=== PATIENT | male | born 1975 | race Two or more races ===

== ENCOUNTER 2019-06-05 17:23 | Emergency (ER) | payer SELFPAY ==
[2019-06-05 17:26] VITALS: BP 149/78; PULSE 110; RESP 16; TEMP 36.9; O2SAT 100; BMI 28.1
--- NOTE | 2019-06-05 17:32 | W.ED.ANIMALB ---
HPI - Animal Bite General: Chief Complaint: Animal Bite Stated Complaint: spider bite Time Seen by Provider: 06/05/19 17:31 History of Present Illness: HPI narrative: Patient is a 44-year-old male who comes into the ED with infected wound. It started about 5 to 6 days ago. It is located on his right buttock. Patient was unaware of any bite or injury to cause wound. Patient says he showed it to one of his friends who is a nurse and they thought it looked like a spider bite. He went to urgent care yesterday to get it evaluated. Patient said they poked and pushed on wound and got it to drain a little bit. They then sent patient home and told him to go to the ED immediately. They did not put him on any antibiotics at the urgent care. Patient says that the pain is getting more intense and sitting down is becoming more more uncomfortable. Denies any fever, chills, shortness of breath, chest pain, abdominal pain, dysuria, hematuria, diarrhea. Associated symptoms: Deny chills, fever(s) or headache(s) Review of Systems Const: Denies: fever, chills or fatigue Eyes: Denies: change in vision or eye discomfort ENMT: Denies: throat pain, painful swallowing, nasal discharge or nasal congestion Card: Denies: chest pain, palpitations, edema, swelling of feet/ankles, shortness of breath on exertion or shortness of breath when lying down Resp: Denies: shortness of breath, productive cough or non-productive cough GI: Denies: abdominal pain, nausea, vomiting, diarrhea, constipation or blood in stool : Denies: flank pain, difficulty urinating, painful urination or blood in urine Musc: Denies: neck pain, back pain or extremity swelling Skin/Breast: Reports: new lesion (possible spider bite that has gotten infected); Denies: rash Neuro: Denies: headache, numbness in extremities or weakness in extremities PFS ED PFSH: Social History Smoking and tobacco status: current every day smoker Alcohol intake: current Physical Exam Const: COMMON NORMALS: oriented x3 HENMT: COMMON NORMALS: normocephalic HEAD & SCALP: normocephalic MOUTH: oral and palatal mucosa normal THROAT: posterior oropharynx normal and uvula midline Neck/C-Spine: COMMON NORMALS: supple GENERAL: Yes normal visual inspection Resp: COMMON NORMALS: normal respiratory effort, no retractions, no use of accessory muscles and clear to auscultation bilaterally AUSCULTATION: clear to auscultation bilaterally Cardio: COMMON NORMALS: regular rate, regular rhythm, S1 normal heart sound, S2 normal heart sound, no gallops, no clicks, no murmurs and peripheral pulses 2+ throughout RATE: regular rate RHYTHM: regular rhythm HEART SOUNDS: S1 normal and S2 normal PERIPHERAL PULSES: pulses 2+ throughout GI: COMMON NORMALS: normal to inspection, nondistended, normoactive bowel sounds, soft to palpation, non-tender and no masses PALPATION: Yes soft : COMMON NORMALS: Yes no CVA tenderness BLADDER/KIDNEY EXAM: Yes no CVA tenderness Back/Pelvis: COMMON NORMALS: no CVA tenderness Neuro: COMMON NORMALS: oriented x3 and moves all extremities Skin: WOUNDS: Yes wounds noted size (2.5cm), bed (Possible spider bite. 2 cm wound. ulcerated with white and necrotic tissue in center) white, with tunneling, necrotic and with undermining, drainage, margins, without odor, open and with surrounding erythema; not malodorous Course Reevaluation(s): Reevaluation #1: I brought in the portable ultrasound to see if wound had any fluid pockets or abscesses forming. Ultrasound showed no abscesses or fluid filled pockets in or surrounding the wound. Time: 17:54 Vital Signs: Vital signs: Vital Signs Temperature 98.4 F 06/05/19 17:26 Pulse Rate 110 H 06/05/19 17:26 Respiratory Rate 16 06/05/19 17:26 Blood Pressure 149/78 06/05/19 17:26 Pulse Oximetry 100 06/05/19 17:26 Discharge Plan Discharge Patient Disposition: Home, Self-Care Clinical Impression: Spider bite wound Qualifiers: Encounter type: subsequent encounter Injury intent: accidental or unintentional Qualified Code(s): T63.301D - Toxic effect of unspecified spider venom, accidental (unintentional), subsequent encounter Condition: Stable Prescriptions: New Bactrim DS 800-160 mg tablet 1 tab PO BID 10 Days Qty: 20 RF: 0 No Action No Known Home Medications RF: 0 Discharge Orders: Discharge Order (Routine); Ordered 06/05/19 Ordered By: Hermilo Jennings Discharge Diet: Regular Discharge Activity: Resume usual activity Patient Instructions: [place] Spider Bite (ED), Acute Wound Care (ED) Activity Restrictions/Additional Instructions: I put in [place] [facility] [place] The wound clinic should be calling you in the next several days to set up an appointment. Take full course of antibiotics as prescribed. You can take ibuprofen or Tylenol for pain and fevers. Keep wound area clean and you can change bandage on it daily. You can return to the ED if you feel wound is worsening and needs to be reevaluated. Coding Level of Care Code ED [employer] for [employer] Exam Comprehensive
[2019-06-05] MEDS: HYDROcodone-acetaminophen 7.5-325 mg Tablet 1 TAB PO (18:12)
[2019-06-05 18:46] VITALS: BP 140/88; PULSE 72; RESP 16; TEMP 36.3; O2SAT 93
== END 2019-06-05 18:22 | disposition home or self-care (01) ==
PROVIDERS: Emergency Provider Physician Assistant
DX: T63.301A Toxic effect of unspecified spider venom, accidental (unintentional), initial encounter (principal); F17.200 Nicotine dependence, unspecified, uncomplicated
CPT/HCPCS: 12345; 87070; 87077; 87186; 87205; 99282; 99283